=== PATIENT | female | born 1980 | race Caucasian/White ===

== ENCOUNTER → 2021-02-16 | Outpatient (CLI) | payer MEDICARE, OTHER | LOC: MRI 10:27 | DX: M54.6 Pain in thoracic spine (principal); S22.059A Unspecified fracture of T5-T6 vertebra, initial encounter for closed fracture; S22.069A Unspecified fracture of T7-T8 vertebra, initial encounter for closed fracture; M40.294 Other kyphosis, thoracic region | CPT/HCPCS: 72157; A9577 ==